=== PATIENT | male | born 1965 | race Caucasian/White ===

== ENCOUNTER 2024-05-18 04:51 | Emergency (ER) | payer SELFPAY ==
[2024-05-18 04:52] VITALS: BP 120/79; PULSE 67; RESP 16; TEMP 37.1; O2SAT 94; BMI 26.4
--- NOTE | 2024-05-18 05:13 | RAD_ITS ---
INDICATION: PAIN EXAMINATION/TECHNIQUE: X-RAY - RIGHT XR Hand Min 3 Views COMPARISON: None. FINDINGS: SOFT TISSUES: Unremarkable. BONES/JOINTS: No fracture or dislocation. Mild degenerative changes of the hand and moderate degenerative changes of the wrist. No erosive changes. RAD/Hand Min 3 Views IMPRESSION: Degenerative changes with no acute abnormality. Electronically Signed: Delfin Dumont DO at 6:00 EDT ,
--- NOTE | 2024-05-18 05:13 | RAD_ITS ---
INDICATION: PAIN EXAMINATION/TECHNIQUE: X-RAY - RIGHT XR Wrist Min 3 Views COMPARISON: None. FINDINGS: SOFT TISSUES: Unremarkable. BONES/JOINTS: No acute fracture or dislocation. Questionable chronic triquetral fracture seen on the lateral view. Mild degenerative changes of the hand and moderate degenerative changes of the wrist. No erosive changes. RAD/Wrist min 3 Views IMPRESSION: 1. Moderate degenerative changes of the wrist. 2. Questionable chronic triquetral fracture. 3. No acute abnormality. Electronically Signed: Delfin Dumont DO at 6:01 EDT ,
[2024-05-18] MEDS: Ketorolac 30 MG/ML Syringe IM (05:40)
--- NOTE | 2024-05-18 05:40 | EX.ED.UPPERE ---
HPI History of Present Illness Chief Complaint: Upper Extremity Injury Informant: patient and spouse/S.O. Narrative Narrative: Patient is a 59-year-old male with no significant past medical history. He states that he is right-hand dominant. He also reports that last night around 630/7 PM he was walking with items in his hands when he tripped and fell approximately 2 feet [place] the [place] landing on outstretched right hand/arm. He states that he did not sustain loss of consciousness nor is he on a blood thinner or has history of bleeding disorder. He reports that he was able to get up shortly after the fall and he continued about his evening activities. He states he had pain and swelling to his hand/wrist but as he was able to continue his normal physical activities he did not think much of this. He states he went to bed and had difficulty sleeping secondary to the pain and swelling and now is concerned there may be a fracture so he presents for evaluation [facility] Medical History no medical history no medical history Home Medications ?Medication ?Instructions ?Recorded ?Last Taken ?Type No Known/Unobtainable [No Known 06/29/15 Unknown History Home Medications] Allergy/AdvReac Type Severity Reaction Status Date / Time No Known Allergies Allergy Verified 05/18/24 04:52 Family History no significant family his Surgical History no surgical history Social History Smoking Status: Never smoker [facility] ED Constitutional Constitutional ED: Denies chills or fever(s) Eyes Eyes: Denies blurry vision, change in vision or diplopia ENT ENT ED: Denies sore throat Cardiovascular Cardiovascular: Denies chest pain, palpitations or racing heartbeat Respiratory/Chest Respiratory/Chest: Denies cough or dyspnea Gastrointestinal Gastrointestinal: Denies abdominal pain, diarrhea, nausea or vomiting Genitourinary Genitourinary ED: Denies dysuria Musculoskeletal Musculoskeletal: Reports other Details: Positive right wrist/hand pain ; Denies back pain or neck pain Integumentary Denies Abrasions Neurologic Neurologic: Denies headache(s), paresthesias or weakness Hematologic/Lymphatic Hematologic/Lymphatic: Denies easy bleeding or easy bruising EXAM Physical Exam Const Vital Signs: 05/18/24 04:52 Temperature 98.7 F Temperature Source Oral Pulse Rate 67 Respiratory Rate 16 Blood Pressure 120/79 Blood Pressure Mean 92 Pulse Ox 94 Oxygen Delivery Method Room Air Positive well nourished and well developed General Appearance ED: well developed HEENT HEENT Narrative: Normocephalic atraumatic No signs of depressed or basilar skull fracture Eyes PERRL and EOMs intact bilaterally Neck full ROM and supple Neck Narrative: No bony deformity or step-off of the cervical spine no midline tenderness to palpation Chest Wall palpation of chest normal Resp normal respiratory effort and clear to auscultation bilaterally Cardio regular rate and regular rhythm Back/Spine Back/Spine Narrative: No bony deformity or step-off of the thoracic or lumbar spine no midline tenderness to palpation Extremity normal to inspection and full ROM Extremity Narrative: Right upper extremity is neurovascularly intact; AIN/PIN are intact and normal. There is soft tissue swelling and ecchymosis of the dorsal aspect of the right hand. There is pain on palpation of the anatomical snuffbox. Otherwise there is no bony deformity or joint effusion noted. No ligamentous laxity. No tendon injury Neuro oriented x3 and CN's II-XII intact bilaterally Sensorium / Orientation: alert Sensory Exam: sensory level loss detected Psych mental status grossly normal Mood & Affect: Negative for anxious or tearful Skin no rashes or lesions noted MDM MDM MDM Narrative Medical decision making narrative: Patient arrived to the ER with stable vitals. He reported a mechanical fall so I felt no need for cardiac or syncope workup. He is not on a blood thinner he does not have a history of bleeding disorder and he has no signs of head injury so I felt no need for head CT. Differential diagnosis is for fracture versus contusion versus dislocation versus ligamentous tear. X-rays were obtained of the right hand and wrist and revealed no acute fracture or dislocation. As he does have pain in the anatomical snuffbox there is concern for scaphoid fracture so will be placed in a Velcro thumb spica splint for stabilization. However as there is no documented fracture or dislocation and he is neurovascularly intact with stable vitals there is no need for further workup and he is otherwise safe for discharge History & Record Review Discussion w/independent historian: Patient and Significant other Radiography Diagnostic Testing: X-ray of the right wrist and the right hand as interpreted by the emergency medicine physician reveal mild degenerative changes without acute fracture or dislocation or joint effusion Discharge Plan Triage Chief Complaint: Upper Extremity Injury ED Provider: Turner Jasso Dx/Rx/DC Orders Clinical Impression: Contusion of right wrist, Right wrist sprain, Accidental fall Instructions: Bone Contusion, ED Wrist Sprain Prescriptions: No Action No Known Home Medications Primary Care Provider: Macy Presley NP Referrals: Macy Presley [employer]IOR [employer]OCIATE, [employer] [facility]IOR [facility]OCIATE[facility] [Primary Care Provider] - Activity Restrictions/Additional Instructions: Wear your Velcro thumb spica brace for stabilization. Ice the area for 10 to 20 minutes 2-3 times a day to help reduce pain and speed healing. If you still have pain at 5 to 7 days you may need a repeat x-ray to ensure there was no missed fracture and if pain persist at the 10 to 14-day jorge a you may need to talk about specialty referral and/or MRI to check for ligamentous tear. If you have any further concerns please return to the ER for repeat evaluation Print Language: [place] Disposition Disposition: Home, Self Care
[2024-05-18 06:37] VITALS: BP 129/71; PULSE 68; RESP 18; TEMP 36.7; O2SAT 100
== END 2024-05-18 06:46 | disposition home or self-care (01) ==
PROVIDERS: Emergency Provider Emergency Medicine; PCP Nurse Practitioner Family; Visit Provider Emergency Medicine
DX: S63.501A Unspecified sprain of right wrist, initial encounter (principal); W18.09XA Striking against other object with subsequent fall, initial encounter; Y92.71 Barn as the place of occurrence of the external cause
CPT/HCPCS: 73110; 73130; 96372; 99284